=== PATIENT | female | born 1960 | race Caucasian/White ===

== ENCOUNTER 2017-02-11 06:56 | Emergency (ER) | END 2017-02-11 11:10 | disposition home or self-care (01) | DX: I47.1 Supraventricular tachycardia (principal); E66.9 Obesity, unspecified; R07.9 Chest pain, unspecified; Z68.28 Body mass index [BMI] 28.0-28.9, adult | CPT/HCPCS: 36415; 71010; 80053; 83735; 84443; 84484; 85025; 85610; 85730; 93005; 96374; J3475; Z7502; Z7610 ==